=== PATIENT | female | born 1960 | race Caucasian/White ===

== ENCOUNTER → 2016-08-27 | Outpatient (CLI) | payer OTHER ==
[~2016-08-27] MED LIST: ATEN25TA PO; LEVO-91 PO; MULTTAB PO; [UNRECOGNIZED DRUG - OTHER] PN
--- NOTE | 2016-08-27 17:21 | REP ---
Right foot series: Four views. History: Right foot pain. Findings: Four views of the right foot show diffuse osteopenia. No fracture or subluxation is seen. Plantar and Achilles calcaneal spurring is noted. Impression: No fracture noted. Signed by Luke Delarosa MD 08/27/2016 05:37 P
== END ==
LOC: M LRY 16:08
PROVIDERS: ATTEND Physician Assistant
DX: M79.671 Pain in right foot (principal)

== ENCOUNTER → 2016-10-16 | Outpatient (CLI) | payer OTHER ==
--- NOTE | 2016-10-16 18:20 | REP ---
Clinical: Trauma. Injury. Technique: AP, lateral, bilateral oblique views of the right foot. Comparison: 08/27/2016. Findings: There is a nondisplaced fracture involving the head of the fifth toe proximal phalanx. Remainder examination demonstrates age-related degenerative changes including [id number] calcaneal heal spur. Impression: Nondisplaced fracture at the head of the fifth toe proximal phalanx. Signed by Lyndon Johnson MD 10/16/2016 05:59 P
== END ==
LOC: M LRY 15:28
PROVIDERS: ATTEND Family Medicine
DX: S92.514D Nondisplaced fracture of proximal phalanx of right lesser toe(s), subsequent encounter for fracture with routine healing (principal); X58.XXXD Exposure to other specified factors, subsequent encounter; Y92.9 Unspecified place or not applicable; Y93.9 Activity, unspecified; Y99.9 Unspecified external cause status

== ENCOUNTER → 2016-10-16 | Outpatient (REF) | payer OTHER ==
[2016-10-16 21:40] LABS: FREE T4 1.14 NG/DL (0.76-1.46)
== END ==
LOC: M SFHCLERA 15:07
PROVIDERS: ATTEND Family Medicine
DX: E03.9 Hypothyroidism, unspecified (principal)

== ENCOUNTER → 2016-11-14 | Outpatient (REF) | payer OTHER | LOC: M SFHCLERA 16:11 | PROVIDERS: ATTEND Family Medicine | DX: D22.61 Melanocytic nevi of right upper limb, including shoulder (principal); L57.0 Actinic keratosis ==

== ENCOUNTER → 2017-02-20 | Outpatient (CLI) | payer OTHER ==
--- NOTE | 2017-02-26 16:36 | SLEEPCENT ---
DATE OF PROCEDURE: 02/20/2017 REFERRING PHYSICIAN: Nelly Melton Nocturnal polysomnography was performed due to concern for the obstructive sleep apnea syndrome in this patient with history of excessive somnolence and abnormal nocturnal oximetry tracing. 7 hours and 58 minutes of data were reviewed. There were 385 minutes of sleep identified. Sleep latency was short at 6 minutes. Rapid eye movement (REM) latency was prolonged at 111 minutes. Sleep architecture showed fragmentation. Progression was maintained. There were four REM periods identified. The patient's EKG showed a sinus rhythm with an average heart rate of 54 beats per minute. EEG showed normal waveforms for awake and sleep. There were 58 respiratory events identified of 10 seconds in duration or greater for an apnea-hypopnea index of 9. The events were primarily obstructive, not exclusive to sleep stage nor body posture. Arousals from respiratory events occurred 5 times per hour and oxygen desaturations were seen into the low 80s. The remaining measures of sleep physiology were fairly normal. IMPRESSION: Obstructive sleep apnea syndrome (G47.33). Apnea/hypopnea index 9. RECOMMENDATION: The patient should be encouraged to return to the sleep disorder center for pressure therapy. In the interim, alcohol and sedative avoidance should be practiced and caution exercised during the operation of motor vehicles.
== END ==
LOC: M SLEEP 19:32
PROVIDERS: ATTEND Nurse Practitioner Adult Health
DX: G47.30 Sleep apnea, unspecified (principal)

== ENCOUNTER → 2017-03-17 | Outpatient (CLI) | payer OTHER ==
--- NOTE | 2017-03-22 08:35 | SLEEPCENT ---
DATE OF PROCEDURE: 03/17/2017 ORDERED BY: Nelly Melton. Nocturnal polysomnography was performed for the titration of pressure therapy in this patient with obstructive sleep apnea syndrome, apnea-hypopnea index of 9. For testing, the patient was fit with a [employer]Med AirFit f20 full face mask of medium size, 4 cm of water pressure were applied to the circuit and the lights were extinguished. 7 hours and 47 minutes of data were reviewed. There were 369 minutes of sleep identified. Sleep latency was short at 3.5 minutes. REM sleep was delayed at 222 minutes. Sleep architecture improved late in the study on optimal pressure therapy. Overall sleep efficiency was 80%. Patient's EKG showed a sinus rhythm with an average heart rate of 60 beats per minute. EEG showed normal wave forms for wake and sleep. Respiratory events were best palliated with CPAP at a pressure of +9. CPAP tolerance was good. There was some limb activity appreciated. Limb movement arousal index was 7.6, increased some from her diagnostic study. IMPRESSION: Obstructive sleep apnea syndrome (G47.33). RECOMMENDATION: Nightly use of pressure therapy 9 cm of water.
== END ==
LOC: M SLEEP 19:39
PROVIDERS: ATTEND Nurse Practitioner Adult Health
DX: G47.33 Obstructive sleep apnea (adult) (pediatric) (principal)

== ENCOUNTER → 2017-07-23 | Outpatient (CLI) | payer OTHER ==
--- NOTE | 2017-07-23 17:19 | REP ---
COMPLETE FACIAL BONES, SEVEN VIEWS: HISTORY: Laceration. Minimal mucosal thickening is present in the left maxillary sinus. The remaining sinuses are clear. There is no fracture or bone lesion. IMPRESSION: Sinus mucosal thickening as described above. Signed by Anderson Richards MD 07/23/2017 05:34 P
== END ==
LOC: M LRY 16:34
PROVIDERS: ATTEND Nurse Practitioner Family
DX: R22.0 Localized swelling, mass and lump, head (principal)

== ENCOUNTER → 2018-03-12 | Outpatient (REF) | payer OTHER | LOC: M SFHCLERA 10:16 | DX: E03.9 Hypothyroidism, unspecified (principal) | CPT/HCPCS: 84443 ==

== ENCOUNTER → 2018-04-29 | Outpatient (REF) | payer OTHER | LOC: M SFHCLERA 09:27 | DX: D22.71 Melanocytic nevi of right lower limb, including hip (principal) ==

== ENCOUNTER → 2018-05-26 | Outpatient (REF) | payer OTHER ==
[2018-05-26 17:26] LABS: THYROID STIMULATING HORMONE 0.337 uIU/ML (0.358-3.740)
== END ==
LOC: M SFHCLERA 14:19
DX: E03.9 Hypothyroidism, unspecified (principal)

== ENCOUNTER → 2018-10-06 | Outpatient (REF) | payer OTHER | LOC: M SFHCLERA 14:24 | PROVIDERS: ATTEND Family Medicine | DX: E03.9 Hypothyroidism, unspecified (principal) ==

== ENCOUNTER → 2021-09-05 | Outpatient (CLI) | payer OTHER | LOC: M RAD 17:58 | PROVIDERS: ATTEND Physician Assistant | DX: M25.521 Pain in right elbow (principal) ==

== ENCOUNTER 2025-04-01 06:47 | Day surgery (SDC) | payer MEDICARE ==
[~2025-04-01] VITALS: Ht 165.1 cm; Wt 86.7 kg
[~2025-04-01 06:47] MED LIST changes: +ALBU8.5H; +BUSP5TA PO; +HYDR50TA70 PO; +LEVO150T7 PO; +MULTTAB61 PO; +TIRZ5PEN3
[2025-04-01] MEDS ORDERED: IBUP200C25 PO (07:25)
[2025-04-01 08:30] VITALS: BP 151/75; TEMP 97.8; O2SAT 95
== END 2025-04-01 08:40 | disposition home or self-care (01) ==
LOC: M OPP 06:47
PROVIDERS: ATTEND Surgery
DX: Z12.11 Encounter for screening for malignant neoplasm of colon (principal); K64.1 Second degree hemorrhoids; K57.30 Diverticulosis of large intestine without perforation or abscess without bleeding; G47.30 Sleep apnea, unspecified; Z91.013 Allergy to seafood; Z79.899 Other long term (current) drug therapy

== ENCOUNTER → 2025-06-16 | Outpatient (REF) | payer MEDICARE ==
[~2025-06-16] MED LIST changes: +IBUP200C25 PO
== END ==
LOC: M SFHCDERM 18:29
PROVIDERS: ATTEND Nurse Practitioner Family
DX: D49.2 Neoplasm of unspecified behavior of bone, soft tissue, and skin (principal)